=== PATIENT | male | born 1985 | race Two or more races ===

== ENCOUNTER 2022-07-21 22:07 | Emergency (ER) | payer SELFPAY ==
--- NOTE | ~2022-07-21 | CT_ITS ---
EXAMINATION: CT HEAD WITHOUT CONTRAST CLINICAL INFORMATION: Trauma COMPARISON: None TECHNIQUE: Contiguous axial imaging was performed from the skull base to vertex without intravenous administration of contrast. This CT examination was performed using dose optimization techniques as appropriate, variously including the following: *Automated exposure control *Adjustment of mA and/or kV according to patient size (this includes techniques or standardized protocols for targeted exams where dose is matched to indication/reason for exam; i.e. extremities or head) *Use of iterative reconstruction technique DLP: 624 mGy-cm FINDINGS: There is no evidence of acute intracranial hemorrhage or territorial infarction. No abnormal mass effect or midline shift is seen. Sexton to white matter differentiation is well preserved. No extra-axial fluid collections are identified. No hydrocephalus. No significant volume loss. There is no abnormal attenuation within the brain parenchyma. No acute osseous or soft tissue abnormality. The mastoid air cells and visualized portions of the paranasal sinuses are well aerated. CT/CT head/brain wo IV con IMPRESSION: No acute intracranial pathology.
[2022-07-21 22:13] VITALS: BP 104/57; BP 112/60; PULSE 100; PULSE 112; RESP 16; TEMP 36.6; O2SAT 96; BMI 23.1
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
[2022-07-21 23:25] VITALS: BP 102/60; PULSE 64; RESP 16; TEMP 36.9; O2SAT 99
[2022-07-21] MEDS: Acetaminophen 325 MG TABLET 650 MG PO (23:34)
--- OUTSIDE RECORDS SUMMARY | 2022-07-21 23:36 | XMS_ITS | Continuity of Care Document ---
:1985 Author Organization [facility] Address [address] [place] [address]- Care Team Providers Name Role Phone Not on Staff, PCP Primary Care Physician Unavailable Encounter [facility] Date(s): 06/17/22 - 06/18/[address] [address]- Discharge Disposition: A-D/C Walkout Attending Physician: Not on Staff, Attending MD Admitting Physician: Not on Staff, Admitting MD Referring Physician: Not on Staff, Referring MD Allergies, Adverse Reactions, Alerts Substance Reaction Severity Status Seafood Active Vital Signs Most recent to oldest [Reference Range]: 1 Oxygen Saturation [94-100 %] 98 % (06/18/22 12:15 AM) Pulse Rate [55-90 bpm] 106 bpm *H* (06/18/22 12:15 AM) Blood Pressure [90-138/55-84 mm Hg] 117/90 mm Hg (06/18/22 12:15 AM) Respiratory Rate [16-30 br/min] 17 br/min (06/18/22 12:15 AM) Temperature [96.8-100.4 DegF] 98.4 DegF (06/18/22 12:15 AM) Mode of Delivery (Oxygen) Room air (06/18/22 12:15 AM) Temperature Route Oral (06/18/22 12:15 AM) Patient Care team information Care Team PersonnelName: Not on Staff, PCP Position: [facility] Physician (General Medicine) Member Role: PCP
--- NOTE | 2022-07-21 23:40 | PC.NURSE ---
RN to bedside to administer Tylenol per order. Pt observed to be lying in stretcher with eyes closed and respirations even and unlabored however pt did not respond to the RN's verbal requests for name and date of . RN previously spoke with patient without issue. Sternal rub performed with positive results. Pt initially upset but understandable once education provided.
== END 2022-07-21 23:45 | disposition home or self-care (01) ==
LOC: HO.ED 23:34
PROVIDERS: Emergency Provider Internal Medicine
DX: S09.90XA Unspecified injury of head, initial encounter (principal); R51.9 Headache, unspecified; X58.XXXA Exposure to other specified factors, initial encounter; Y93.9 Activity, unspecified; Y92.9 Unspecified place or not applicable; Y99.9 Unspecified external cause status
CPT/HCPCS: 70450; 99283; 99284

== ENCOUNTER 2024-01-19 12:57 | Emergency (ER) | payer MEDICAID, SELFPAY | END 2024-01-19 14:23 | disposition left against medical advice (07) | LOC: HO.ED 14:04 | PROVIDERS: Emergency Provider Emergency Medicine | DX: S69.92XA Unspecified injury of left wrist, hand and finger(s), initial encounter (principal); X58.XXXA Exposure to other specified factors, initial encounter; Y93.9 Activity, unspecified; Y92.9 Unspecified place or not applicable; Y99.9 Unspecified external cause status ==

== ENCOUNTER 2024-02-06 15:47 | Outpatient (REF) | payer MEDICAID, SELFPAY ==
--- NOTE | ~2024-02-06 | XR_ITS ---
EXAMINATION: XR HAND, LEFT CLINICAL INFORMATION: Status post fall. Swelling and pain at the left hand. COMPARISON: None available. TECHNIQUE: PA, lateral, and oblique views of the left hand. FINDINGS: A transverse, dorsally angulated fracture is evident at the fifth metacarpal neck. A small mild surrounding callus formation is noted. Soft tissues are swollen. No articular involvement. No additional fractures are identified. Joints appear well-preserved. No erosions. Positive ulnar variance. XR/XR hand LT min 3V IMPRESSION: Dorsally angulated fracture of the fifth metacarpal neck.
== END 2024-02-06 15:48 | disposition home or self-care (01) ==
LOC: HO.HHCX 15:47
PROVIDERS: Visit Provider Nurse Practitioner Family
DX: M79.642 Pain in left hand (principal)
CPT/HCPCS: 36415; 73130; 86592; 87536; 87900

== ENCOUNTER 2024-02-06 16:11 | Outpatient (REF) | payer MEDICAID, SELFPAY ==
[2024-02-08 06:53] LABS: RPR Rapid Plasma Reagin NON-REACTIVE (NON-REACTIVE)
[2024-02-10 16:53] LABS: HIV RNA PCR Qn Copies Not Detected Copies/mL; HIV RNA PCR Qn Log Copies Not Detected Log cps/mL
== END 2024-02-06 16:12 | disposition home or self-care (01) ==
LOC: HO.HHCL 16:11
PROVIDERS: Visit Provider Nurse Practitioner Family
DX: Z70.8 Other sex counseling (principal)
CPT/HCPCS: 36415; 86592; 87536; 87900

== ENCOUNTER 2024-03-13 16:35 | Outpatient (REF) | payer MEDICAID, SELFPAY | END 2024-03-13 16:36 | disposition home or self-care (01) | LOC: HO.HOSX 16:35 | PROVIDERS: Visit Provider Orthopaedic Surgery | DX: Z13.89 Encounter for screening for other disorder (principal) ==

== ENCOUNTER 2024-03-19 08:25 | Emergency (ER) | payer MEDICAID, SELFPAY ==
[2024-03-19 08:34] VITALS: BP 112/62; PULSE 78; O2SAT 100
[2024-03-19 08:42] VITALS: BP 109/66; PULSE 71; RESP 16; TEMP 36.8; O2SAT 97; BMI 24.0
--- NOTE | 2024-03-19 09:02 | ED_ITS ---
HPI - General Adult General Chief complaint: Animal Bite Stated complaint: BUG BITE Time Seen by Provider: 03/19/24 08:30 Source: patient Mode of arrival: ambulatory Limitations: no limitations History of Present Illness ED Provider: Phan Vásquez PA-C HPI narrative: 38 yo male presents to the ER from the [facility] for evaluation of an infected bug bite to his right wrist for the last 3 days. He states he thinks he got bit by something but does not know what. He states it is painful and more swollen today. He denies any IVDA. No injuries or falls. He is homeless. complaint: right wrist insect bite Onset (ago): day(s) (3) Location: right and upper extremity Radiation: proximal Severity: severe Quality: aching Pain Consistency: constant Relieving factors: rest Exacerbating factors: movement Associated symptoms: denies other symptoms Treatments prior to arrival: none Related Data Previous Rx's ?Medication ?Instructions ?Recorded cephalexin 500 mg capsule 500 mg PO Q6H 7 days #28 caps 03/19/24 doxycycline hyclate 100 mg tablet 100 mg PO BID #14 tabs 03/19/24 Allergies Allergy/AdvReac Type Severity Reaction Status Date / Time No Known Allergies Allergy Verified 03/19/24 08:45 Review of Systems Review of Systems: Yes all other systems are reviewed and are negative [facility] Social History Social History Advance Directives: No Advance Directives Information Provided: No Physical Exam ED Vital Signs: Vital Signs - 24 hr 03/19/24 08:42 03/19/24 09:37 Temperature 98.2 F 98.2 F Pulse Rate 71 71 Respiratory Rate 16 16 Blood Pressure 109/66 109/66 Pulse Oximetry 97 97 Oxygen Delivery Method Room Air Room Air BMI result Body Mass Index 24.0 Appearance: Sleeping. Arouses to touch. Disheveled and unkempt Head: normocephalic, atraumatic. Eyes: Pupils equal, round and reactive to light. ENT: Pharynx normal. No tonsillar swelling or exudate. Neck: Normal inspection. Neck supple. CVS: Normal heart rate and rhythm. Pulses normal. Respiratory: No respiratory distress. Breath sounds normal. Abdomen: Soft and nontender. +BS x4 Skin: Skin warm and dry. Normal skin color. Normal skin turgor. No rashes. Extremities: No lower extremity edema. On the radial aspect of the right wrist there is an approximately 5 cm area of erythema and warmth with associated tenderness, there is a central area of induration but no fluctuance. Pain with full flexion of the wrist. Equal hand grasp bilaterally. No extension to the thumb or digits. Forearm compartments are soft and compressible. 2+ radial pulse on the right side Neuro/psych: Intermittently agitated and, answers questions appropriately at times, falls asleep easily Medications Administered Discontinued Medications Generic Name Dose Route Start Last Admin Trade Name Freq PRN Reason Stop Dose Admin Cephalexin HCl 500 mg 03/19/24 09:05 03/19/24 09:29 Cephalexin 500 Mg Capsule PO 03/19/24 09:06 500 mg ONCE ONE Administration Doxycycline Monohydrate 100 mg 03/19/24 09:05 03/19/24 09:29 Doxycycline Monohydrate 100 Mg Capsule PO 03/19/24 09:06 100 mg ONCE ONE Administration Ibuprofen 600 mg 03/19/24 09:05 03/19/24 09:29 Ibuprofen 600 Mg Tablet PO 03/19/24 09:06 600 mg ONCE ONE Administration Medical Decision Making Medical Decision Making MDM Narrative: 38-year-old male currently homeless who presents to the ER for evaluation of right wrist swelling, erythema and pain. Denies injury or IVDA. exam revealing for area of cellulitis with probable early abscess on the wrist. no area of fluctuance to drain today. will start on double coverage abx with concern for MRSA. given strict return precautions and patient expressed understanding. stable for d/c home Differential Diagnosis Differential Diagnoses: The differential diagnosis associated with the presentation includes cellulitis, abscess, MRSA infection, infected insect bite, lyme Independent Historian Clinical information obtained from an independent historian. History obtained from or confirmed by: EMS External Record Review External record reviewed: Outpatient record Tests considered The following testing was considered but not selected: considered xray wrist and lab workup Prescription Management I considered prescription management with: Pain Medication and Antibiotic Chronic Conditions Patient?s care impacted by: Other (homelessness) Social Determinants Patient?s care significantly limited by Social Determinants of Health including: Inadequate housing, Problems related to primary support group and Other Social Determinant of Health Critical Care Time Critical Care Time Critical Care Time: No Discharge Plan Discharge Clinical Impression: Cellulitis Qualifiers: Site of cellulitis: extremity Site of cellulitis of extremity: upper extremity Laterality: right Qualified Code(s): L03.113 - Cellulitis of right upper limb Patient Disposition: Home, Self-Care Instructions: Cellulitis (DC), Warm Compress or Soak (ED) Additional Instructions: Take the prescribed antibiotics as directed, complete the entire course and do not miss any doses Go pick them up from the pharmacy in the lobby of the [facility] as soon as you are discharged Use warm compresses several times per day If you develop new or worsening symptoms call 911 or come back to the ER for further evaluation. Prescriptions: New doxycycline hyclate 100 mg tablet 100 mg PO BID Qty: 14 0RF cephalexin 500 mg capsule 500 mg PO Q6H 7 Days Qty: 28 0RF Interventions: ED Discharge Assessment Last Done: 03/19/24 09:37 Discharge Date/Time: 03/19/24 09:40 Print Language: Telugu
[2024-03-19] MEDS: Ibuprofen 600 MG TABLET PO (09:29)
[2024-03-19] MEDS: Doxycycline Monohydrate 100 MG CAPSULE PO (09:29)
[2024-03-19] MEDS: cephALEXin 500 MG CAPSULE PO (09:29)
[2024-03-19 09:37] VITALS: BP 109/66; PULSE 71; RESP 16; TEMP 36.8; O2SAT 97
== END 2024-03-19 09:40 | disposition home or self-care (01) ==
PROVIDERS: Emergency Provider Emergency Medicine
DX: L03.113 Cellulitis of right upper limb (principal)
CPT/HCPCS: 99283